=== PATIENT | female | born 1970 | race Caucasian/White ===

== ENCOUNTER 2018-05-24 10:40 | Day surgery (SDC) | payer OTHER ==
[2018-05-22 16:15] VITALS: BMI 35.5
[2018-05-24] VITALS (16 sets, daily range): BP systolic 111–158; BP diastolic 64–88; PULSE 66–87; RESP 10–25; Ht 170.2 cm; Wt 106.6 kg
[~2018-05-24] VITALS: Ht 170.2 cm; Wt 106.6 kg
[~2018-05-24 10:40] MED LIST: CEFAZOLIN 2 GM/50 ML (PMX) 50 ML IVPB ONE; PROPOFOL 200 MG INJ ONE; SOD CHLORIDE 0.9% 1,000 ML IV SCH
[2018-05-24] MEDS ORDERED: DULO60CA59 ORAL (11:35)
[2018-05-24] MEDS ORDERED: DIPH50CA30 ORAL (11:35)
[2018-05-24] MEDS ORDERED: PROP10TA6 ORAL (11:35)
[2018-05-24] MEDS ORDERED: LAMO200T2 ORAL (11:35)
--- NOTE | 2018-05-24 13:27 | PREAC ---
Date/Time of Note Date/Time of Note DATE: 05/24/18 TIME: 13: Anesthesia Eval and Record Evaluation Time Pre-Procedure Interview DATE: 05/24/18 TIME: 13: Age 47 Sex female NPO: 8 hrs Preoperative diagnosis cholelithiasis Planned procedure laparoscopic cholecystectomy Past Medical History Past Medical History: Includes GI: Obesity, Other (endometriosis) Psych: Depression, Other (fibromyalgia) Surgery & Anesthesia Issues No known issue Meds Anticoagulation: No Beta Tabatha within 24 hr: Yes Reason Beta Tabatha not given: Bradycarida, Hypotension Reported Medications Propranolol Hcl* (Propranolol Hcl*) 10 Mg Tablet, 1 TAB ORAL BID PRN for ANXIETY 05/24/18 Lamotrigine* (Lamotrigine*) 200 Mg Tablet, 1 TAB ORAL QHS 05/24/18 Duloxetine Hcl* (Duloxetine Hcl*) 60 Mg Capsule.dr, 1 CAP ORAL BID 05/24/18 Diphenhydramine Hcl (BANOPHEN) 50 Mg Capsule, 1 CAP ORAL QHS 05/24/18 Current Medications Sodium Chloride 1,000 ml @ 75 mls/hr [id number] IV ; Start 05/24/18 at 08:00; Stop 05/24/18 at 21:19 Meds reviewed: Yes Allergies Coded Allergies: No Known Drug Allergies (Unverified Allergy, Unknown, 05/23/18) Allergies Reviewed: Yes Labs/Studies Labs Reviewed: Reviewed by anesthesiologist test: Negative Pre-procedure Exam Last vitals Vital Signs Date Temp Pulse Resp B/P (MAP) Pulse Ox O2 O2 Flow FiO2 Time Delivery Rate 05/24/18 98.2 87 16 111/72 96 Room Air 11:19 (85) Airway: Adequate mouth opening, Adequate thyromental dist Mallampati: Mallampati II Teeth: Normal Lung: Normal Heart: Normal ASA Physical Status ASA physical status: 2 Emergency: None Planned Anesthetic General/MAC: ETT Nerve block: TAP (bilateral) Planned Pain Management Single shot nerve block, Parenteral pain med Pre-operative Attestations Prior to commencing anesthesia and surgery, the patient was re-evaluated, there was verification of: *The patient's identity *The results of appropriate recent lab work and preoperative vital signs *The above evaluation not changing prior to induction *Anesthetic plan, risk benefits, alternative and complications discussed with patient/family; questions answered; patient/family understands, accepts and wishes to proceed. LUCINA GRANADO MD May 24, 2018 13:27
[2018-05-24] MEDS ORDERED: HYDROmorphONE 1 MG/5 ML IV SYRINGE IV PRN ×3 (14:00)
[2018-05-24] MEDS ORDERED: PROCHLORPERAZINE 10 MG INJ IV PRN (14:00)
[2018-05-24] MEDS ORDERED: MEPERIDINE 25 MG INJ IV PRN (14:00)
[2018-05-24] MEDS ORDERED: OXYCODONE/ACETAMINOPHEN (5/325) TAB PO PRN (14:00)
[2018-05-24] MEDS ORDERED: ONDANSETRON 4 MG INJ IV PRN (14:00)
[2018-05-24] MEDS ORDERED: hydrALAzine 20 MG INJ IV PRN (14:00)
[2018-05-24] MEDS ORDERED: FENTAnyl 50 MCG/ML VIAL IV PRN ×3 (14:00)
[2018-05-24] MEDS ORDERED: EPHEDrine SULFATE 50 MG/5 ML SYG IV PRN (14:00)
[2018-05-24] MEDS ORDERED: LABETALOL HCL 20MG INJ IV PRN (14:00)
[2018-05-24] MEDS ORDERED: DIPHENHYDRAMINE 50 MG INJ IV PRN (14:00)
[2018-05-24] MEDS ORDERED: SUCCINYLCHOLINE CHLORIDE 100 MG/5 ML SYG IV ONE (14:03)
[2018-05-24] MEDS ORDERED: ROPIVACAINE 0.5 % 30 ML VIAL ONE (14:03)
[2018-05-24] MEDS ORDERED: MIDAZOLAM 1 MG/ML 2 ML INJ ONE (14:03)
[2018-05-24] MEDS ORDERED: PROPOFOL 20 ML ONE (14:03)
[2018-05-24] MEDS ORDERED: LIDOCAINE 2% (SDV) 5 ML INJ ONE (14:03)
[2018-05-24] MEDS ORDERED: FENTAnyl 50 MCG/ML VIAL ONE (14:03)
[2018-05-24] MEDS ORDERED: ROCURONIUM 50 MG INJ ONE (14:03)
[2018-05-24] MEDS ORDERED: CEFAZOLIN 1 GM INJ ONE (14:36)
[2018-05-24] MEDS ORDERED: DEXAMETHASONE 4 MG/ML 5 ML INJ ONE (14:36)
[2018-05-24] MEDS ORDERED: ONDANSETRON 4 MG INJ ONE (14:36)
[2018-05-24] MEDS ORDERED: FAMOTIDINE 20 MG INJ ONE (14:37)
[2018-05-24] MEDS ORDERED: SUGAMMADEX SODIUM 200 MG/2 ML VIAL IV ONE ×2 (14:45→14:49)
[2018-05-24] MEDS ORDERED: KETOROLAC 30 MG INJ ONE (14:48)
--- NOTE | 2018-05-24 14:51 | OPR ---
Date/Time of Note Date/Time of Note DATE: 05/24/18 TIME: 14:49 Operative Report Procedure Date: May 24, 2018 Preoperative Diagnosis symptomatic gallstones Postoperative Diagnosis same Operation/Procedure Performed laparoscopic cholecystectomy Surgeon see signature line Design Drafter Alo Simpson Anesthesia Type: general Estimated Blood Loss: 0 - 10 ml's Transfusion none Specimen gallbladder Grafts/Implants none Complications none Pt Condition Post Procedure: stable Indications This is a 39-year-old female with some tender gallstones. She required surgical excision of her gallbladder. Risks alternatives benefits and percent were discussed the patient. Patient expressed understanding consents to the operation. Procedure Description Patient is taken to the OR and prepped and draped in usual sterile fashion. Surgical time was performed. IV antibiotics were given. Infraumbilical transverse incision with a 15 blade. Using dissection with cautery tissues were taken down all the way to the fascia. The fascia was grasped with [place]'s and divided with curved Ackerman scissors. 0 Vicryl U stitch was placed into the fascia. [place] trocar was introduced. Pneumoperitoneum is established. Midepigastric 12 mm optical trochars were placed under direct visualization. Right upper quadrant upper flank 5 mm optical trochars were placed under direct visualization. Upon initial inspection there is some adhesions to the gallbladder which are taken down bluntly. The gallbladder is grasped with the fundus and retracted lateral cephalad direction. [place] graspers were used to dissect out the cystic duct and cystic artery. The critical view was established. The cystic duct is divided with 3 clips proximal to distal and the division was performed laparoscopic scissors. Cystic artery was divided 3 clips proximal to distal and the division was performed laparoscopic scissors. The gallbladder was taken of the gallbladder bed. Good hemostasis established. The gallbladder was retrieved using Endo Catch bag. All ports removed under direct position. 0 Vicryl stitch was tied down. Skin is closed and skin keesha. A tap block was provided by the anesthesiologist. Dry dressings were applied. Juli LEON May 24, 2018 14:51
[2018-05-24] MEDS ORDERED: HYDROCODONE/APAP (5/325) TAB PO ONE (15:00)
--- NOTE | 2018-05-24 15:22 | PAC ---
Date/Time of Note Date/Time of Note DATE: 05/24/18 TIME: 15:22 Post-Anesthesia Notes Post-Anesthesia Note Last documented vital signs Vital Signs Date Temp Pulse Resp B/P (MAP) Pulse Ox O2 O2 Flow FiO2 Time Delivery Rate 05/24/18 97.9 15:07 05/24/18 74 21 133/83 98 Mask 8.0 14:55 (100) Activity: WNL Respiratory function: WNL Cardiovascular function: WNL Mental status: Baseline Pain reasonably controlled: Yes Hydration appropriate: Yes Nausea/Vomiting absent: Yes Comments BP: 135/81 HR: 78 RR: 15 T: 97.9 SaO2: 98% LUCINA GRANADO MD May 24, 2018 15:22
== END 2018-05-24 17:18 | disposition home or self-care (01) ==
LOC: SDS 10:40
PROVIDERS: ATTEND Surgery
DX: K80.10 Calculus of gallbladder with chronic cholecystitis without obstruction (principal)
CPT/HCPCS: 47562; 84703; 88304; J0690; J1100; J1170; J1885; J2175; J2250; J2405; J2795; J3010; Z7512; Z7610